=== PATIENT | male | born 1965 | race Caucasian/White ===

== ENCOUNTER 2021-07-30 06:43 | Emergency (ER) | payer SELFPAY ==
[2021-07-30] VITALS (7 sets, daily range): BP systolic 112–143; BP diastolic 65–93; PULSE 49–70; RESP 17–18; TEMP 37; O2SAT 94–96; BMI 34.0
--- NOTE | 2021-07-30 07:19 | CTR_ITS ---
PROCEDURE INFORMATION: Exam: CT Abdomen And Pelvis With Contrast Exam date and time: 07/30/2021 7:19 AM Age: 56 years old Clinical indication: Abdominal pain; Flank; Left; Additional info: Luq abdominal pain TECHNIQUE: Imaging protocol: Computed tomography of the abdomen and pelvis with contrast. Radiation optimization: All CT scans at this facility use at least one of these dose optimization techniques: automated exposure control; mA and/or kV adjustment per patient size (includes targeted exams where dose is matched to clinical indication); or iterative reconstruction. Contrast material: OMNIPAQUE 300; Contrast volume: 95 ml; Contrast route: INTRAVENOUS (IV); COMPARISON: No relevant prior studies available. RADIATION DOSE METRICS: Total DLP (mGy-cm): 1786.72 FINDINGS: Lungs: Mild dependent atelectasis. No consolidation. Liver: Mild diffuse hepatic steatosis. No focal lesions. Gallbladder and bile ducts: Normal. No calcified stones. No ductal dilation. Pancreas: Normal. No ductal dilation. Spleen: Normal. No splenomegaly. Adrenal glands: Normal. No mass. Kidneys and ureters: 6 mm calculus (as measured on coronal image 27 series 602) at the left UVJ causing mild hydroureteronephrosis. Few additional bilateral punctate renal calculi. No right ureteral calculi or hydronephrosis. There is a 4 mm right lower pole hypodensity which is too small to characterize but most likely represents a cyst. Stomach and bowel: No obstruction. No inflammatory changes. Appendix: No evidence of appendicitis. Intraperitoneal space: No free air. No significant fluid collection. Vasculature: Unremarkable. No abdominal aortic aneurysm. Lymph nodes: Unremarkable. No enlarged lymph nodes. Urinary bladder: Bladder partially filled with no bladder calculi. Reproductive: Unremarkable as visualized. Bones/joints: No acute or aggressive osseous lesion. Soft tissues: Unremarkable. CT/CT abdomen pelvis w con* [id number] IMPRESSION: 1. 6 mm distal left ureteral calculus at the UVJ resulting in mild hydroureteronephrosis. 2. Bilateral punctate non-obstructing renal calculi. 3. Mild hepatic steatosis. Radiation Dose CTDIVOL = (mGy): DLP = 1786.72 (mGy-cm)
--- NOTE | 2021-07-30 07:22 | W.ED.ABDPA2 ---
HPI - Abdominal Pain General: Chief Complaint: Abdominal Pain Stated Complaint: Lower ABD Pain Time Seen by Provider: 07/30/21 06:48 Source: patient and family Mode of arrival: ambulatory History of Present Illness: HPI narrative: 56-year-old male presents emergency department chief complaint of having left-sided abdominal pain after eating [place] food last night. The patient reports that he has had no bowel movement today he reports increased pain and cramping noted to his left abdomen. He reports no fevers or chills reports no recent sick or ill contacts reporting no other associated symptoms. Patient is now report having a prior history of colonoscopy or prior known history of diverticulitis. MD elicited complaint: abdominal pain Pertinent past history: constipation Onset (ago): day(s) (1) Pain Consistency: colicky Location: LUQ and LLQ Severity: moderate Pain scale (0-10): 5 Quality: cramping and aching Radiation: none Migration to: no migration Exacerbating factors: nothing Relieving factors: nothing Associated Symptoms: Reports anorexia, change in bowel habits, constipation, GI cramping and nausea; Denies belching, bloating, coffee ground emesis, diarrhea, dyspepsia, dysuria, excessive flatus, fever(s), heartburn, hematochezia, syncope and vomiting Review of Systems General: Reports: 10 or more systems reviewed and unremarkable except in HPI and below Const: Reports: change in appetite; Denies: fever(s) Eyes: Denies: blurry vision, photophobia or eye redness ENMT: Reports: mouth pain; Denies: throat pain, dental pain or ear or mastoid pain Card: Denies: chest pain or syncope Resp: Denies: dyspnea or productive cough GI: Reports: abdominal pain, nausea, constipation, GI cramping and change in bowel habits; Denies: vomiting, coffee ground emesis, heartburn, diarrhea, bloating, belching, excessive flatus or hematochezia : Denies: flank pain, difficulty urinating or dysuria Musc: Denies: neck pain, back pain, extremity pain or joint pain Skin/Breast: Denies: rash or erythema Neuro: Denies: headache(s), dizziness or confusion Psych: Denies: anxiety or depression All/Imm: Denies: urticaria, throat swelling or facial swelling Physical Exam Const: COMMON NORMALS: no acute distress, average body habitus, patient oriented x3, no limitations, healthy appearing, alert and well nourished EXAM LIMITATIONS: no altered mental status GENERAL APPEARANCE: cooperative and in distress HENMT: COMMON NORMALS: normocephalic and atraumatic HEAD & SCALP: normocephalic and atraumatic Eye: COMMON NORMALS: Equal, round and reactive pupils present and EOMs intact bilaterally PUPIL: Yes Equal, round and reactive pupils present Neck/C-Spine: COMMON NORMALS: full ROM, supple and no JVD Lymph: LYMPHATIC: no lymphadenopathy noted Chest: COMMONS NORMALS: normal inspection of the chest and normal palpation of entire chest wall Resp: COMMON NORMALS: normal respiratory effort, No retractions and clear to auscultation bilaterally EFFORT & INSPECTION: Yes able to speak in complete sentences and Yes symmetric chest movement AUSCULTATION: clear to auscultation bilaterally Cardio: COMMON NORMALS: no JVD, regular rate and regular rhythm RATE: regular rate RHYTHM: regular rhythm GI: COMMON NORMALS: Normal to inspection, nondistended, normoactive bowel sounds present and Soft to palpation INSPECTION: Yes normal to inspection PALPATION: Yes Soft to palpation and Yes Tenderness to palpation present (GI) Details: LLQ and LUQ (Moderate tenderness appreciated to the left upper quadrant and left lateral abdomen no obvious ecchymosis or bruising or trauma appreciated) : COMMON NORMALS: Yes no CVA tenderness BLADDER/KIDNEY EXAM: Yes no CVA tenderness Back/Pelvis: COMMON NORMALS: no CVA tenderness Extremity: COMMON NORMALS: normal to inspection and full ROM Neuro: COMMON NORMALS: patient oriented x3 SENSORIUM/ORIENTATION: Yes alert Psych: COMMON NORMALS: mental status grossly normal, Normal thought process present, cooperative and normal affect THOUGHT PROCESS: Normal thought process present Skin: COMMON NORMALS: no rashes or lesions noted GENERAL SKIN EXAM: no rashes or lesions noted Course ED course: Due to the patient's symptoms and condition lab work and imaging will be obtained patient will be provided fentanyl and Zofran for his breakthrough pain and discomfort and symptoms will continue to follow. Patient was noted to have a left-sided ureterovesicular kidney stone at 5 mm upon reevaluation advised that the patient became bradycardic EKG was obtained this came back reassuring patient received additional refill medications for his pain nausea and symptoms advised for the follow-up primary care in 3 to 5 days, in which he was advised to return the interim if any of his symptoms persist or worse. Vital Signs: Vital signs: Vital Signs Temperature 98.6 F 07/30/21 06:58 Pulse Rate 49 L 07/30/21 11:18 Respiratory Rate 18 07/30/21 11:18 Blood Pressure 112/65 07/30/21 11:18 Pulse Oximetry 95 07/30/21 11:18 MDM - Abdominal Pain Differential Diagnosis: Differential diagnosis abdominal pain: Likely abdominal pain, constipation, diverticulitis, gastroenteritis and pancreatitis Medical Records: Attestation: I reviewed the patient's medical records. Lab Data: Attestation: I reviewed the patient's lab results. Labs: Lab Results 07/30/21 07/30/21 07/30/21 07:10 07:10 07:36 WBC 8.2 10^3/uL 10^3/ uL (4.0-10.0) RBC 5.10 10^6/uL 10^6 /uL (4.1-5.3) Hgb 16.0 g/dL g/dL (11.7-16.6) Hct 48.3 % % (42.0-52.0) MCV 94.7 fl H fl (80-94) MCH 31.4 pg pg (28.0-34.0) MCHC 33.1 g/dL g/dL (30.0-36.0) RDW 13.8 % % (12.1-15.1) Plt Count 225 10^3/cmm 10^3 /cmm (130-400) MPV 11.1 fL H fL (7.4-10.4) Neut % (Auto) 69.0 % % Lymph % (Auto) 17.4 % % [place] % (Auto) 7.3 % % Eos % (Auto) 5.6 % % Baso % (Auto) 0.5 % % Neut # (Auto) 5.66 10^3/uL 10^3 /uL (1.8-7.7) Lymph # (Auto) 1.4 10^3/uL 10^3/ uL (0.8-4.8) [place] # (Auto) 0.6 10^3/uL 10^3/ uL (0.2-0.9) Eos # (Auto) 0.5 10^3/uL 10^3/ uL (0.0-0.8) Baso # (Auto) 0.0 10^3/uL 10^3/ uL (0.0-0.1) Nucleated RBC % (a uto) 0 % % Nucleated RBCs # 0.0 /100WBC /100W BC Sodium 141 mmol/L mmol/L (136-145) Potassium 4.5 mmol/L mmol/L (3.5-5.1) Chloride 106 mmol/L mmol/L (98-107) Carbon Dioxide 27 mmol/L mmol/L (22-29) Anion Gap 12.5 (5-19) BUN 16 mg/dL mg/dL (6-20) Creatinine 0.8 mg/dL mg/dL (0.7-1.2) GFR Calculation 99.6 mL/min mL/mi n (90-130) Glucose 127 mg/dL H mg/dL (65-115) Calculated Osmolal ity 295 mOsm/kg mOsm/ kg (285-295) Calcium 9.1 mg/dL mg/dL (8.5-10.5) Total Bilirubin 0.2 mg/dL mg/dL (0.15-1.2) AST 24 U/L U/L (0-40) ALT 32 U/L U/L (0-41) Alkaline Phosphata se 138 IU/L H IU/L (40-130) Total Protein 6.9 g/dL g/dL (6.6-8.7) Albumin 4.2 g/dL g/dL (3.5-5.2) Globulin 2.7 g/dL g/dL (1.3-4.6) Lipase 20 U/L U/L (13-60) Urine Color Yellow (Yellow) Urine Appearance Clear (CLEAR) Urine pH 5 (5-7) Ur Specific Gravit y 1.015 (1.005-1.030) Urine Protein Neg (Negative) Urine Glucose (UA) Norm (Normal) Urine Ketones Negative (Negative) Urine Blood 2+ H (Negative) Urine Nitrate Negative (Negative) Urine Bilirubin Neg (Negative) Urine Urobilinogen Norm mg/dL mg/dL (Negative) Ur Leukocyte Christa ase Negative (Negative) Urine RBC 5-10 /hpf H /hpf (0-2) Urine WBC 0-4 /hpf H /hpf (0-5) Ur Squamous Epith Cells Rare /hpf /hpf (0-5) Amorphous Sediment Not Reportable Urine Bacteria Trace /hpf /hpf (NONE) Discharge Plan Discharge Patient Disposition: Home Clinical Impression: Kidney stone on left side Condition: Stable Prescriptions: New hydrocodone-acetaminophen 5-325 mg tablet 1 tab PO Q8H PRN (Reason: pain) Qty: 15 RF: 0 Flomax 0.4 mg capsule 0.4 mg PO Q24H Qty: 7 RF: 0 Zofran 4 mg tablet 4 mg PO Q8H PRN (Reason: nausea and vomiting) Qty: 20 RF: 0 Discharge Orders: Discharge ED (Routine); Ordered 07/30/21 Ordered By: Genaro Travis Referrals: Dharmesh Jones [Primary Care Provider] - Discharge Diet: Regular Patient Instructions: Kidney Stones (ED), Renal Colic (ED), Opioid Safety Activity Restrictions/Additional Instructions: Please follow-up with your primary care doctor in the next 2 to 3 days for further assessment management take medications as prescribed and return the ER if any of your symptoms persist or worse. Coding Level of Care Code ED Barker Operator for [place] Fwd Exam Comprehensive
[2021-07-30 07:49] LABS: Basophils % 0.5 %; Eosinophils # 0.5 10^3/uL (0.0-0.8); Eosinophils % 5.6 %; Hematocrit 48.3 % (42.0-52.0); Lymphocytes # 1.4 10^3/uL (0.8-4.8); Lymphocytes % 17.4 %; Mean Corpuscular HGB Conc 33.1 g/dL (30.0-36.0); Mean Corpuscular Hemoglobin 31.4 pg (28.0-34.0); Mean Corpuscular Volume 94.7 fl (80-94); Mean Platelet Volume 11.1 fL (7.4-10.4); Monocytes # 0.6 10^3/uL (0.2-0.9); Monocytes % 7.3 %; Neutrophils # 5.66 10^3/uL (1.8-7.7); Nucleated Red Blood Cells % 0 %; Platelet Count 225 10^3/cmm (130-400); Red Cell Distribution Width 13.8 % (12.1-15.1); White Blood Count 8.2 10^3/uL (4.0-10.0)
[2021-07-30 07:51] LABS: Alanine Aminotransferase 32 U/L (0-41); Albumin Level 4.2 g/dL (3.5-5.2); Alkaline Phosphatase 138 IU/L (40-130); Anion Gap 12.5 (5-19); Aspartate Amino Transferase 24 U/L (0-40); Blood Urea Nitrogen 16 mg/dL (6-20); Calcium 9.1 mg/dL (8.5-10.5); Carbon Dioxide 27 mmol/L (22-29); Chloride 106 mmol/L (98-107); Globulin 2.7 g/dL (1.3-4.6); Glomerular Filtration Rate 99.6 mL/min (90-130); Glucose 127 mg/dL (65-115); Lipase 20 U/L (13-60); Osmolality Calculated 295 mOsm/kg (285-295); Potassium 4.5 mmol/L (3.5-5.1); Sodium 141 mmol/L (136-145); Total Bilirubin 0.2 mg/dL (0.15-1.2); Total Protein 6.9 g/dL (6.6-8.7)
[2021-07-30] MEDS: sodium chloride 0.9% 1,000 ML 125 ML IV (08:03)
[2021-07-30] MEDS: fentaNYL 50 mcg/mL INJ 2mL 25 MCG IVP (08:03)
[2021-07-30] MEDS: ondansetron 2 mg/ML SDV 2 mL 4 MG IVP (08:04)
[2021-07-30] MEDS: iohexol 300 mg/mL 100 mL Btl IV (08:21)
[2021-07-30 08:28] LABS: Specific Gravity, Urine 1.015 (1.005-1.030); Urine Appearance Clear (CLEAR); Urine Color Yellow (Yellow); pH Urine 5 (5-7)
[2021-07-30 08:29] LABS: Add Urine Culture? No; Add Urine Microscopic? YES; Bacteria Urine TRACE /hpf; Bilirubin Urine Neg (Negative); Blood Urine 2+ (Negative); Glucose Urine UA Norm (Normal); Ketones Urine Negative (Negative); Leukocyte Esterase Urine Negative (Negative); Nitrate Urine Negative (Negative); Protein Urine Neg (Negative); Squamous Epithelial Cell Urine RARE /hpf (0-5); Urobilinogen Urine Norm (Negative); WBC Urine 0-4 /hpf (0-5)
[2021-07-30] MEDS: ketorolac 30 mg/mL INJ IVP (09:46)
--- NOTE | 2021-07-30 10:39 | ECG_ITS ---
[facility] Test Date: 2021-07-30 Pat Name: Alok Lux Department: Room: Gender: Male Process Line Operator: : 1965 Requested By: Genaro Travis Order Number: [id number] Gloria MD: Jelena Mckoy M.D. Measurements Intervals [place] Rate: 49 P: 53 IA: 166 QRS: 53 QRSD: 102 T: 67 QT: 403 QTc: 367 Interpretive Statements SINUS BRADYCARDIA No previous ECG available for comparison Electronically Signed On 07-30-2021 21:04:09 CDT by Jelena Mckoy M.D. [email or web address]
== END 2021-07-30 12:35 | disposition home or self-care (01) ==
PROVIDERS: Emergency Provider Emergency Medicine; PCP Physician Assistant Medical
DX: N20.0 Calculus of kidney (principal)
CPT/HCPCS: 74177; 80053; 81001; 83690; 85025; 93005; 96361; 96374; 96375; 99284; J1885; J2405; J3010; J7030; Q9967